=== PATIENT | female | born 1995 | race Asian ===

== ENCOUNTER → 2022-01-28 | Outpatient (CLI) | payer OTHER ==
--- NOTE | 2022-01-28 16:20 | Diagnostic Imaging Report ---
INDICATION: Palpable lump in the right breast. TECHNIQUE: Sonographic interrogation of the area of palpable abnormality in the upper inner right breast was performed. FINDINGS: There is a macrolobulated solid, circumscribed mass at the 2 o'clock location of the right breast 2 cm from the nipple measuring 1.0 x 0.7 x 1.0 cm. This does show posterior acoustic enhancement. There is internal blood flow. The features are most consistent with a fibroadenoma. No other sonographic abnormalities are seen. IMPRESSION: A solid nodule at the 2 o'clock location of the right breast corresponds to the palpable abnormality. 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 A followup ultrasound in 6 months is recommended to show continued stability. This was discussed with the patient. The option was given to the patient to undergo ultrasound guided biopsy, if she wishes. ACR BI-RADS Category 3: Probably benign findings. Dictated by: Dictated on workstation # [id number]
== END ==
LOC: RAD 12:13
PROVIDERS: ATTEND Nurse Practitioner Family
DX: N63.12 Unspecified lump in the right breast, upper inner quadrant (principal)
CPT/HCPCS: 76641